=== PATIENT | male | born 1985 | race Caucasian/White ===

== ENCOUNTER 2021-02-26 12:40 | Emergency (ER) | payer BC, OTHER ==
[2021-02-26] MEDS ORDERED: Ketorolac 60 MG/2 ML SDV IM ONE (16:04)
[2021-02-26] MEDS ORDERED: Orphenadrine 100 MG Tab.ER PO ONE (16:04)
[2021-02-26 17:22] LABS: CORONAVIRUS COVID-19 NAA POSITIVE (NEGATIVE)
[2021-02-26 18:08] LABS: C. TRACHOMATIS BY PCR NOT DETECTED; N. GONORRHOEAE BY PCR NOT DETECTED
== END 2021-02-26 16:48 | disposition home or self-care (01) ==
LOC: JD.ED 12:40
DX: U07.1 COVID-19 (principal); M54.50 Low back pain, unspecified; Z88.5 Allergy status to narcotic agent; Z72.0 Tobacco use
CPT/HCPCS: 0241U; 36415; 74176; 80053; 80306; 81001; 85025; 86140; 87491; 87591; 96372; 99284; A9270; J1885; 86592; 99283